=== PATIENT | male | born 1970 | race Caucasian/White ===

== ENCOUNTER → 2020-10-01 | Emergency (ER) | payer SELFPAY ==
[~2020-10-01] MED LIST: ACETAMINOPHEN 500 MG TABLET PO ONE
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
== END | disposition left against medical advice (07) ==
LOC: ER 16:38
DX: Z53.21 Procedure and treatment not carried out due to patient leaving prior to being seen by health care provider (principal); Y08.89XA Assault by other specified means, initial encounter; Y93.89 Activity, other specified; Y92.89 Other specified places as the place of occurrence of the external cause; Y99.8 Other external cause status
CPT/HCPCS: 70450; 72125